=== PATIENT | male | born 1980 | race Caucasian/White ===

== ENCOUNTER → 2019-09-19 | Outpatient (CLI) | payer BC | LOC: LAB 13:52 | DX: K13.79 Other lesions of oral mucosa (principal) ==

== ENCOUNTER → 2021-07-11 | Outpatient (CLI) | payer BC ==
[2021-07-11 15:42] LABS: BASO # 0.03 K/mm3 (0.02-0.10); EOS # 0.11 K/mm3 (0.04-0.40); EOS % 1.3 % (0.0-4.0); HEMATOCRIT 43.7 % (42.0-52.0); HEMOGLOBIN 15.1 g/dL (13.5-18.0); LYMPH# 2.13 K/mm3 (1.50-4.00); MEAN CELL VOLUME 88 fl (78-100); MEAN CORPUSCULAR HEMOGLOBIN 30 pg (27-31); MEAN CORPUSCULAR HGB CONC 35 g/dL (33-37); MEAN PLATELET VOLUME 9.7 fl (7.4-10.4); MONO # 0.72 K/mm3 (0.20-0.80); NEU # 5.55 K/mm3 (1.40-6.50); PLATELET COUNT 200 K/mm3 (130-400); RED BLOOD COUNT 4.96 M/mm3 (4.20-5.60); RED CELL DISTRIBUTION WIDTH 12.5 % (11.5-14.5); WHITE BLOOD COUNT 8.6 K/mm3 (4.8-10.8)
[2021-07-11 15:55] LABS: ALBUMIN 4.6 g/dL (3.5-5.0); POTASSIUM 4.1 mmol/L (3.5-5.1)
[2021-07-11 15:56] LABS: CALCIUM 10.1 mg/dL (8.3-10.5)
[2021-07-11 15:59] LABS: TOTAL BILIRUBIN 2.6 mg/dL (0.2-1.2)
== END ==
LOC: LAB 15:20
PROVIDERS: Family Medicine
DX: Z00.00 Encounter for general adult medical examination without abnormal findings (principal); E78.5 Hyperlipidemia, unspecified; E66.9 Obesity, unspecified; L57.0 Actinic keratosis; M25.561 Pain in right knee; I83.819 Varicose veins of unspecified lower extremity with pain

== ENCOUNTER → 2023-01-13 | Outpatient (CLI) | payer BC | LOC: LAB 09:48 | DX: E29.1 Testicular hypofunction (principal) ==

== ENCOUNTER → 2023-10-18 | Outpatient (CLI) | payer BC | LOC: LAB 16:26 | DX: E29.1 Testicular hypofunction (principal) ==

== ENCOUNTER → 2023-11-21 | Outpatient (CLI) | payer BC | LOC: RAD 17:15 | DX: M25.562 Pain in left knee (principal) ==

== ENCOUNTER → 2024-03-13 | Outpatient (CLI) | payer BC ==
[2024-03-13 23:39] LABS: TESTOSTERONE 659 ng/dL (240-871)
== END ==
LOC: LAB 15:16
PROVIDERS: Family Medicine
DX: E55.9 Vitamin D deficiency, unspecified (principal); E29.1 Testicular hypofunction